=== PATIENT | male | born 1930 | race Caucasian/White ===

== ENCOUNTER 2017-05-25 09:03 | Day surgery (SDC) | payer OTHER ==
[2017-05-19 13:38] VITALS: Ht 165.1 cm; Wt 76.0 kg
[~2017-05-25] VITALS: Ht 165.1 cm; Wt 76.0 kg
[~2017-05-25 09:03] MED LIST: ACET-1256 PO; ASPI81TA28 PO; CEFAZOLIN 2000 MG/60 ML D5W IV SCH; CRS/10 PO; LACTATED RINGER'S 1000ML 1,000 ML IV SCH; LEVO50TA6 PO; METO25TA56 PO
[2017-05-25 10:16] VITALS: BP 137/69; PULSE 53; TEMP 36.5; O2SAT 99
[2017-05-25] MEDS ORDERED: ATROPINE SULFATE 0.1 MG/ML 5ML SYR IV PRN (11:30)
[2017-05-25] MEDS ORDERED: PROMETHAZINE HCL INJ 6.25 MG in SODIUM CHLORIDE 0.9% 50ML 50 ML IV PRN (11:30)
[2017-05-25] MEDS ORDERED: EpHEDrine SULFATE INJ 50 MG/ML AMP IV PRN (11:30)
[2017-05-25] MEDS ORDERED: FENTANYL CITRATE INJ 50 MCG/1 ML 2 ML VIAL IV PRN (11:30)
[2017-05-25] MEDS ORDERED: ONDANSETRON INJ 2 MG/ML 2 ML VIAL IV PRN (11:30)
[2017-05-25] MEDS ORDERED: DEXAMETHASONE SOD INJ 4 MG/ML VIAL ONE (11:50)
[2017-05-25] MEDS ORDERED: ONDANSETRON INJ 2 MG/ML 2 ML VIAL ONE (11:50)
[2017-05-25] MEDS ORDERED: FENTANYL CITRATE INJ 50 MCG/1 ML 2 ML VIAL ONE (11:50)
[2017-05-25] MEDS ORDERED: LIDOCAINE HCL 2% 2 ML VIAL (20MG/ML) ONE (11:50)
[2017-05-25] MEDS ORDERED: PROPOFOL IV EMULSION 10 MG/ML 20 ML VIAL IV ONE (11:50)
--- NOTE | 2017-05-25 12:06 | History & Physical Bridge Note ---
H&P Re-Evaluation Bridge Note: I have examined the patient, reviewed the History & Physical and in the interval since the performance of the History & Physical I have noted the following changes of clinical significance: No changes noted
[2017-05-25] MEDS ORDERED: BELLADONNA/OPIUM SUPP 60 MG SUPP PR ONE (12:39)
--- NOTE | 2017-05-25 12:57 | [facility] Operative Report ---
Operative Report Operative Date May 25, 2017. Pre-Operative Diagnosis Right distal ureteral stone Post-Operative Diagnosis same Procedure(s) Performed cystoscopy, right ureteroscopy, basket stone extraction stent removal Surgeon Dr. Milvia Hein Manager Heavy Equipment Surgeon(s) None Estimated Blood Loss 5 mL Findings light miller stone in distal ureter, prostate and bladder neck bleeding. Fluids 700mL Specimens Permanent specimens A: Right ureteral stone for analysis Drains none Anesthesia LMA Complication(s) None Disposition Recovery Room / PACU Indications right obstructing ureteral stone, stented at OSH few weeks ago. We plan to remove stone Description of Procedure Patient was given general LMA anesthesia and placed in lithotomy position. His genitals were prepped and draped in sterile fashion. Time out held with team. I placed a 21 fr rigid cystoscope to bladder. The urethra is unremarkable. The prostate is enlarged and bleeds easily. I rinsed bloody urine and a thumb sized clot out of bladder. The UOs are normal. I grasped stent tip and withdrew to meatus. I placed a stiff wire up the stent to the right kidney. I removed stent and found it to be intact. I placed a flexible ureteroscope alongside the wire into the right UO. The stone is in the very distal ureter and easily dislodged into the bladder with the basket. I then advanced the scope up to the kidney and find no other stone fragments and find the ureter to be in good condition. I did not leave a new stent. I then used basket to remove the stone and drained the bladder with scope reinsertion. I left bladder empty and concluded case. I placed a belladonna and opium suppository for post-op pain. He transferred to recovery under my escort, in stable condition. Plan: Home today Pyridium for dysuria x 3 days flomax daily oral pain meds as needed ASA 3 clean contaminated case 6 seconds fluoro ancef antibiotic environmental services coordinator I attest to the content of the Intraoperative Record and any orders documented therein. Any exceptions are noted below.
[2017-05-25] MEDS ORDERED: TAMS0.4C38 PO (13:01)
[2017-05-25] MEDS ORDERED: PHEN-775 PO (13:01)
[2017-05-25] MEDS ORDERED: OXYC-57 PO (13:01)
--- NOTE | 2017-05-25 13:03 | Discharge Instructions ---
Discharge Instructions Date of Service May 25, 2017. Admission Reason for Admission: Kidney Stone Discharge Discharge Diagnosis / Problem: right distal ureeral stone Discharge Goals Goal(s): Improve disease control Activity Recommendations Activity Limitations: resume your previous activity Lifting Limitations: none Exercise/Sports Limitations: none May Resume Sexual Activity: when tolerated Shower/Bathe: no limitations Driving or Machine Use: resume 1 day after discharge . Instructions / Follow-Up Instructions / Follow-Up urine may be bloody for several more days take pyridium if yo are having burning with urination take flomax (tamsulosin) if you are having flank pain Discharge Diet Recommended Diet: Regular Diet Fluid Restriction: None Procedures Procedures Performed: Cystoscopy, Right Ureteroscopy, Basket stone extraction, Stent Removal Pending Studies Studies pending at discharge: no Medical Emergencies . Who to Call and When: Medical Emergencies: If at any time you feel your situation is an emergency, please call 911 immediately. . Non-Emergent Contact Non-Emergency issues call your: Urologist ([phone]) Call Non-Emergent contact if: temperature is above 100.5, your pain is not controlled . . "Provider Documentation" section prepared by Milvia Hein. . VTE Core Measure Inpt VTE Proph given/why not?: SCD's [place] Drug Monitoring Program Search Results: patient reviewed within database, no issues identified
--- NOTE | 2017-05-25 13:34 | Anesthesiology Progress Note ---
Anesthesia Post Op Note Date & Time May 25, 2017 at 13:34 Vital Signs Pain Intensity: 0 Vital Signs Past 12 Hours Date Time Temp Pulse Resp B/P (MAP) Pulse Ox O2 Delivery O2 Flow Rate FiO2 05/25/17 13:26 100/58 05/25/17 13:25 59 17 96 05/25/17 13:25 60 17 05/25/17 13:21 109/67 05/25/17 13:20 58 21 95 05/25/17 13:20 59 21 05/25/17 13:17 36.7 58 18 115/69 98 Room Air 05/25/17 13:16 115/69 05/25/17 13:15 64 25 05/25/17 13:15 67 25 97 05/25/17 13:11 125/65 05/25/17 13:10 65 20 100 05/25/17 13:10 61 20 05/25/17 13:09 61 18 05/25/17 13:09 63 18 100 05/25/17 13:06 115/66 05/25/17 13:04 62 19 05/25/17 13:04 62 19 100 05/25/17 13:01 107/58 05/25/17 12:59 63 16 100 05/25/17 12:59 63 16 05/25/17 12:56 123/55 05/25/17 12:55 116/69 05/25/17 12:54 68 25 05/25/17 12:54 36.5 63 16 116/69 (87) 100 Mask 2 05/25/17 12:54 70 25 100 05/25/17 10:16 36.5 53 20 137/69 (91) 99 Room Air Notes Mental Status: alert / awake / arousable, participated in evaluation Pt Amnestic to Procedure: Yes Nausea / Vomiting: adequately controlled Pain: adequately controlled Airway Patency, RR, SpO2: stable & adequate BP & HR: stable & adequate Hydration State: stable & adequate Anesthetic Complications: no major complications apparent
[2017-05-25 13:40] VITALS: BP 117/53; PULSE 55; TEMP 36.5; O2SAT 97
[2017-05-25 14:10] VITALS: BP 123/57; PULSE 58; O2SAT 97
[2017-05-25 14:40] VITALS: BP 100/55; PULSE 54; TEMP 36; O2SAT 98
--- NOTE | 2017-05-25 15:09 | DIAGNOSTIC IMAGING REPORT ---
Retrograde pyelogram KUB CLINICAL HISTORY: RT STENT REMOVED, STONE CAME OUT WIT HST ENT TECHNIQUE: Image intensifier COMPARISON STUDY: None FINDINGS: Image intensifier was utilized for right ureteral stent removal IMPRESSION: Image intensifier intraoperative usage Electronically signed by: Juan Lynn M.D. 05/25/2017 3:08 PM Dictated Date/Time: 05/25/2017 3:07 PM
== END 2017-05-25 14:55 | disposition home or self-care (01) ==
LOC: C.ACU 09:03
PROVIDERS: ATTEND Urology
DX: N20.1 Calculus of ureter (principal); I10 Essential (primary) hypertension; E78.00 Pure hypercholesterolemia, unspecified; E03.9 Hypothyroidism, unspecified; Z79.899 Other long term (current) drug therapy

== ENCOUNTER 2018-06-25 14:52 | Emergency (ER) | payer OTHER ==
[~2018-06-25] VITALS: Ht 165.1 cm; Wt 73.8 kg
[~2018-06-25 14:52] MED LIST changes: -CEFAZOLIN 2000 MG/60 ML D5W IV SCH; -LACTATED RINGER'S 1000ML 1,000 ML IV SCH
[2018-06-25 14:54] VITALS: TEMP 36.5; Ht 165.1 cm; Wt 73.8 kg
[2018-06-25] MEDS ORDERED: SODIUM CHLORIDE 0.9% 500ML 500 ML IV STA (15:08)
--- NOTE | 2018-06-25 15:14 | EMERGENCY ROOM VISIT NOTE ---
History Report prepared by Alvaro: Zhao Lopez Under the Supervision of: Dr. Jayy Correa M.D. First contact with patient: 14:57 Chief Complaint: HEAD PAIN Stated Complaint: HEAD PAIN, SHARP, LASTING SECONDS, ACUTE History of Present Illness The patient is a 88 year old male who presents to the Emergency Room with complaints of an intermittent headache that began 3-4 days ago. Patient describes the pain as a "dull ache" and states it only last a "few seconds". He states the pain is located at the top of his head. Patient adds the pain only happens once a day and after each episode he takes an Aspirin. He denies having a headache in the ER. Patient is present with his daughter who states she was informed yesterday about the headache. Daughter states she was concerned when she heard about the patient's symptoms and after he had another occurrence this morning decided to bring him into the ER. 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 Daughter states she does not know how they fixed the patient's aneurysm. Daughter states the patient has a history of kidney issues. Patient states he uses a cane due to "imbalance". Patient's PCP is Dr. Arrington at [facility]. Patient denies changes in vision/hearing, nausea, fever, chills, cough, congestion, diarrhea, chest pain, and SOB. Source of History: patient, family (Daughter) Onset: 3-4 days ago Position: head Timing: intermittent Modifying Factors (Relieving): other (Aspirin) Associated Symptoms: No fevers, No chills, No cough, No nausea, No vomiting , No diarrhea Note: Negative vision/hearing changes. Review of Systems See HPI for pertinent positives and negatives. A total of ten systems were reviewed and were otherwise negative. Past Medical & Surgical Medical Problems: (1) Abdominal aortic aneurysm Family History Omitted secondary to age. Social History Smoking Status: Former Smoker Current/Historical Medications Scheduled Aspirin (Aspirin Ec), 81 MG PO DAILY Finasteride (Proscar), 5 MG PO DAILY Levothyroxine Sodium (Levothyroxine Sodium), 1 TAB PO QAM Metoprolol Tartrate (Lopressor) (Lopressor), 25 MG PO BID Rosuvastatin Calcium (Crestor), 10 MG PO QAM Scheduled PRN Acetaminophen (Tylenol), 1,000 MG PO Q12 PRN for Pain Allergies Coded Allergies: Iodinated Diagnostic Agents (Verified Allergy, Severe, AFFECTS KIDNEY FUNCTIION, 06/25/18) Shellfish Allergy (Verified Allergy, Severe, GI SYMPTOMS, 05/25/17) Physical Exam Vital Signs Date Time Temp Pulse Resp B/P (MAP) Pulse Ox O2 Delivery O2 Flow Rate FiO2 06/25/18 20:02 56 18 117/69 99 06/25/18 18:42 51 18 113/61 99 Room Air 06/25/18 17:41 59 18 106/59 100 Room Air 06/25/18 16:01 151/68 06/25/18 15:55 55 25 100 Room Air 06/25/18 15:25 59 19 98 Room Air 06/25/18 15:21 99 Room Air 06/25/18 15:21 60 17 151/72 99 Room Air 06/25/18 15:20 59 06/25/18 14:54 36.5 67 17 95/62 96 Room Air Physical Exam GENERAL: Awake, alert, well-appearing, in no distress HENT: Normocephalic, atraumatic. Oropharynx unremarkable. EYES: Normal conjunctiva. Sclera non-icteric. NECK: Supple. No nuchal rigidity. FROM. No JVD. RESPIRATORY: Clear to auscultation. CARDIAC: Regular rate, normal rhythm. Extremities warm and well perfused. Pulses equal. ABDOMEN: Soft, non-distended. No tenderness to palpation. No rebound or guarding. No masses. RECTAL: Deferred. MUSCULOSKELETAL: Chest examination reveals no tenderness. The back is symmetrical on inspection without obvious abnormality. There is no CVA tenderness to palpation. No joint edema. LOWER EXTREMITIES: Calves are equal size bilaterally and non-tender. No edema. No discoloration. NEURO: Normal sensorium. No sensory or motor deficits noted. Normal cerebellar function with upxwov-by-busa, alternating palms, cpmi-ej-hepw. SKIN: No rash or jaundice noted. Medical Decision & Procedures ER Provider Diagnostic Interpretation: Radiology results as stated below per my review and radiologist interpretation: HEAD WITHOUT CONTRAST (CT) CT DOSE: 537.48 mGy.cm HISTORY: Headaches inermittent BURRELL, h/o AAA TECHNIQUE: Multiaxial CT images of the head were performed without the use of intravenous contrast. A dose lowering technique was utilized adhering to the principles of ALARA. Comparison: 02/27/2010 Findings: The paranasal sinuses and mastoid air cells are clear. Old right cerebellar infarct. Atrophy stable to minimally progressive from the prior study. Mild components of chronic small vessel change unremarkable for age. No evidence for acute intracranial hemorrhage. No midline shift. Impression: Chronic and age-related change. Atrophy. Old right cerebellar infarct. No acute intracranial abnormality. The above report was generated using voice recognition software. It may contain grammatical, syntax or spelling errors. Electronically signed by: Juan Lynn M.D. 06/25/2018 6:09 PM ORBITS FOR MRI HISTORY: Pre-MRI pre-MRI screening. COMPARISON: None. FINDINGS: .Form body overlying the anterior aspect of the left orbit. No additional radiopaque densities are seen. IMPRESSION: Metallic foreign body left anterior aspect left orbit/globe. This patient is not a candidate for MRI given this appearance The above report was generated using voice recognition software. It may contain grammatical, syntax or spelling errors. Electronically signed by: Juan Lynn M.D. 06/25/2018 5:18 PM CHEST ONE VIEW PORTABLE CLINICAL HISTORY: CHEST PAIN dyspnea COMPARISON STUDY: 02/27/2010 FINDINGS: Interval development of a right apical/paratracheal masslike process. Superior traction of the right hilum. Left lung is considered clear. There is be radiopaque marker at the level of the right hilum with the findings described potentially pre-existing. IMPRESSION: 1. 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 2. There appears to be a fiduciary marker overlying the right hilum raising the possibility of a pre-existing operative and/or invasive change. 3. If there is no history of neoplasm, CT of the chest would be suggested as follow-up. The above report was generated using voice recognition software. It may contain grammatical, syntax or spelling errors. Electronically signed by: Juan Lynn M.D. 06/25/2018 4:08 PM Laboratory Results 06/25/18 15:20 Red Blood Count 4.10, Mean Corpuscular Volume 95.9, Mean Corpuscular Hemoglobin 30.0, Mean Corpuscular Hemoglobin Concent 31.3, Mean Platelet Volume 9.3, Neutrophils (%) (Auto) 65.3, Lymphocytes (%) (Auto) 22.6, Monocytes (%) (Auto) 10.0, Eosinophils (%) (Auto) 1.4, Basophils (%) (Auto) 0.5, Neutrophils # (Auto ) 3.85, Lymphocytes # (Auto) 1.33, Monocytes # (Auto) 0.59, Eosinophils # (Auto ) 0.08, Basophils # (Auto) 0.03 06/25/18 15:20 Test 06/25/18 15:20 White Blood Count 5.89 K/uL (4.8-10.8) Red Blood Count 4.10 M/uL (4.7-6.1) Hemoglobin 12.3 g/dL (14.0-18.0) Hematocrit 39.3 % (42-52) Mean Corpuscular Volume 95.9 fL (80-100) Mean Corpuscular Hemoglobin 30.0 pg (25-34) Mean Corpuscular Hemoglobin Concent 31.3 g/dl (32-36) Platelet Count 145 K/uL (130-400) Mean Platelet Volume 9.3 fL (7.4-10.4) Neutrophils (%) (Auto) 65.3 % Lymphocytes (%) (Auto) 22.6 % Monocytes (%) (Auto) 10.0 % Eosinophils (%) (Auto) 1.4 % Basophils (%) (Auto) 0.5 % Neutrophils # (Auto) 3.85 K/uL (1.4-6.5) Lymphocytes # (Auto) 1.33 K/uL (1.2-3.4) Monocytes # (Auto) 0.59 K/uL (0.11-0.59) Eosinophils # (Auto) 0.08 K/uL (0-0.5) Basophils # (Auto) 0.03 K/uL (0-0.2) RDW Standard Deviation 49.4 fL (36.4-46.3) RDW Coefficient of Variation 14.2 % (11.5-14.5) Immature Granulocyte % (Auto) 0.2 % Immature Granulocyte # (Auto) 0.01 K/uL (0.00-0.02) Anion Gap 7.0 mmol/L (3-11) Est Creatinine Clear Calc Drug Dose 25.5 ml/min Estimated GFR () 40.3 Estimated GFR (Non- 34.7 BUN/Creatinine Ratio 19.6 (10-20) Calcium Level 8.5 mg/dl (8.5-10.1) Magnesium Level 2.0 mg/dl (1.8-2.4) Total Bilirubin 0.5 mg/dl (0.2-1) Direct Bilirubin 0.1 mg/dl (0-0.2) Aspartate Amino Transf (AST/SGOT) 17 U/L (15-37) Alanine Aminotransferase (ALT/SGPT) 19 U/L (12-78) Alkaline Phosphatase 66 U/L (45-117) Troponin I < 0.015 ng/ml (0-0.045) Total Protein 7.4 gm/dl (6.4-8.2) Albumin 3.5 gm/dl (3.4-5.0) Lipase 166 U/L (73-393) Laboratory results reviewed by me Medications Administered Medications (Trade) Dose Ordered Sig/Yordy Route Start Time Stop Time Status Last Admin Dose Admin Sodium Chloride 500 ml @ 250 mls/hr Q2H STAT IV 06/25/18 15:08 06/25/18 17:07 DC 06/25/18 15:24 250 MLS/HR ECG Per My Interpretation Indication: other (Headache) Rate (beats per minute): 57 Rhythm: sinus bradycardia Findings: 1st degree AV block, RBBB, no acute ischemic change, other (Normal axis) ED Course 1501: The patient was evaluated in room A3. A complete history and physical exam was performed. 1955: I reevaluated the patient. Discussed results and discharge instructions. He verbalized understanding and agreement. The patient is ready for discharge. Medical Decision I reviewed the patient's past medical history, medications, and the nursing notes as described above. Differential diagnosis: Etiologies such as migraine headache, meningitis, sinusitis, CO exposure, ICH, SAH, infection, tumor, headache, sinus thrombosis, arterial dissection, as well as others were entertained. The patient is 88-year-old gentleman with a past medical history of CKD, recurrent kidney stones, AAA status post open repair, remote cerebellar infarct who presents emergency department with several days of 3 second intermittent dull posterior headaches that occur mostly in the morning per hpi. Otherwise patient denies any other symptoms and reports he feels "great". However, patient was urged to come the ED by his daughter who is concerned about his AAA history and his headaches. On arrival the patient is well-appearing in no acute distress, afebrile stable vital signs. He is neurologically intact including normal cerebellar function with ebqveg-uh-ozuq, alternating palms, hmhj-ie-ewyd. Creatinine1.7 at the patient's baseline per the family. Labs otherwise unremarkable. Patient's creatinine 1.7 therefore CTA not possible at this time, given his symptoms appear very mild and risk of injury to kidneys does not outweigh possible identification of aneurysm at this time. MRI/MRA ordered however ultimately found to have metallic foreign body from years ago and therefore also not possible. Thus, CT without contrast of the head was performed and unremarkable. Findings reviewed with the patient and his daughter at the bedside and we agree that given that his symptoms are very mild , we agree to defer any additional evaluation/screen for cranial aneurysm at this time and they will discuss further with his PCP about how they wish to proceed given his CKD. Findings and plan for follow-up reviewed with patient. Patient agreeable and d/c'd per discharge instructions. Medication Reconcilliation Current Medication List: was personally reviewed by me Blood Pressure Screening Patient's blood pressure: Normal blood pressure Blood pressure disposition: Did not require urgent referral Impression Primary Impression: Intermittent headache Scribe Attestation The scribe's documentation has been prepared under my direction and personally reviewed by me in its entirety. I confirm that the note above accurately reflects all work, treatment, procedures, and medical decision making performed by me. Departure Information Dispostion Home / Self-Care Referrals Shun Arrington M.D. (PCP) Patient Instructions Headache Pain, My [facility] Additional Instructions Please follow up with your primary care physician in the next 1-3 days for re- evaluation. The cause of your symptoms is unclear at this time. However, may be related to mild dehydration. Otherwise, your exam, EKG, chest xray, lab results, and CT scan of your brain did not show signs of an emergent condition at this time. Unfortunately we were unable to obtain an MRI of your brain given that you have an old metallic foreign body present. Additionally we are unable to perform a CT scan with contrast given your kidney function. You should discuss with your doctor need or wish to pursue further imaging based on your symptoms. Drink plenty of fluids to ensure hydration. Return to the emergency department for worsening symptoms as described in the accompanying instructions.
[2018-06-25] MEDS ORDERED: OPTIRAY 320 IV PRN (15:15)
[2018-06-25 15:21] VITALS: O2SAT 99
[2018-06-25 15:32] LABS: BASO % 0.5 %; BASO ABS # 0.03 K/uL (0-0.2); EOS % 1.4 %; EOS ABS # 0.08 K/uL (0-0.5); HEMATOCRIT 39.3 % (42-52); HEMOGLOBIN 12.3 g/dL (14.0-18.0); IG# 0.01 K/uL (0.00-0.02); LYMPH % 22.6 %; LYMPH ABS # 1.33 K/uL (1.2-3.4); MEAN CELL VOLUME 95.9 fL (80-100); MEAN CORPUSCULAR HGB CONC 31.3 g/dl (32-36); MEAN PLATELET VOLUME 9.3 fL (7.4-10.4); MONO ABS # 0.59 K/uL (0.11-0.59); NEUT % 65.3 %; NEUT ABS # 3.85 K/uL (1.4-6.5); PLATELET COUNT 145 K/uL (130-400); RED CELL DISTRIBUTION WIDTH CV 14.2 % (11.5-14.5); RED CELL DISTRIBUTION WIDTH SD 49.4 fL (36.4-46.3); WHITE BLOOD COUNT 5.89 K/uL (4.8-10.8)
[2018-06-25] MEDS ORDERED: FINA5TAB PO (15:37)
[2018-06-25 15:55] LABS: ALBUMIN 3.5 gm/dl (3.4-5.0); ALKALINE PHOSPHATASE 66 U/L (45-117); ALT/SGPT 19 U/L (12-78); AST/SGOT 17 U/L (15-37); BLOOD UREA NITROGEN 33 mg/dl (7-18); CALCIUM 8.5 mg/dl (8.5-10.1); CARBON DIOXIDE 25 mmol/L (21-32); CREATININE 1.71 mg/dl (0.60-1.40); GLUCOSE 88 mg/dl (70-99); LIPASE 166 U/L (73-393); POTASSIUM 4.3 mmol/L (3.5-5.1); SODIUM 135 mmol/L (136-145); TOTAL PROTEIN 7.4 gm/dl (6.4-8.2)
--- NOTE | 2018-06-25 16:10 | DIAGNOSTIC IMAGING REPORT ---
CHEST ONE VIEW PORTABLE CLINICAL HISTORY: CHEST PAIN dyspnea COMPARISON STUDY: 02/27/2010 FINDINGS: Interval development of a right apical/paratracheal masslike process. Superior traction of the right hilum. Left lung is considered clear. There is be radiopaque marker at the level of the right hilum with the findings described potentially pre-existing. IMPRESSION: 1. 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 2. There appears to be a fiduciary marker overlying the right hilum raising the possibility of a pre-existing operative and/or invasive change. 3. If there is no history of neoplasm, CT of the chest would be suggested as follow-up. The above report was generated using voice recognition software. It may contain grammatical, syntax or spelling errors. Electronically signed by: Juan Lynn M.D. 06/25/2018 4:08 PM Dictated Date/Time: 06/25/2018 4:06 PM
--- NOTE | 2018-06-25 17:19 | DIAGNOSTIC IMAGING REPORT ---
ORBITS FOR MRI HISTORY: Pre-MRI pre-MRI screening. COMPARISON: None. FINDINGS: .Form body overlying the anterior aspect of the left orbit. No additional radiopaque densities are seen. IMPRESSION: Metallic foreign body left anterior aspect left orbit/globe. This patient is not a candidate for MRI given this appearance The above report was generated using voice recognition software. It may contain grammatical, syntax or spelling errors. Electronically signed by: Juan Lynn M.D. 06/25/2018 5:18 PM Dictated Date/Time: 06/25/2018 5:17 PM
--- NOTE | 2018-06-25 18:10 | DIAGNOSTIC IMAGING REPORT ---
HEAD WITHOUT CONTRAST (CT) CT DOSE: 537.48 mGy.cm HISTORY: Headaches inermittent BURRELL, h/o AAA TECHNIQUE: Multiaxial CT images of the head were performed without the use of intravenous contrast. A dose lowering technique was utilized adhering to the principles of ALARA. Comparison: 02/27/2010 Findings: The paranasal sinuses and mastoid air cells are clear. Old right cerebellar infarct. Atrophy stable to minimally progressive from the prior study. Mild components of chronic small vessel change unremarkable for age. No evidence for acute intracranial hemorrhage. No midline shift. Impression: Chronic and age-related change. Atrophy. Old right cerebellar infarct. No acute intracranial abnormality. The above report was generated using voice recognition software. It may contain grammatical, syntax or spelling errors. Electronically signed by: Juan Lynn M.D. 06/25/2018 6:09 PM Dictated Date/Time: 06/25/2018 6:07 PM
[2018-06-25 20:02] VITALS: BP 117/69; PULSE 56; O2SAT 99
== END 2018-06-25 20:00 | disposition home or self-care (01) ==
LOC: C.EDB 14:54 → C.EDA 20:00
DX: R51 Headache (principal); I71.4 Abdominal aortic aneurysm, without rupture; Z87.891 Personal history of nicotine dependence; Z79.82 Long term (current) use of aspirin; Z91.041 Radiographic dye allergy status; Z91.013 Allergy to seafood